=== PATIENT | male | born 1940 | race Caucasian/White ===

== ENCOUNTER → 2017-04-01 | Outpatient (CLI) | payer MEDICARE | END | disposition home or self-care (01) | LOC: PCVCCLINIC 10:12 | PROVIDERS: ATTEND Internal Medicine | DX: I25.10 Atherosclerotic heart disease of native coronary artery without angina pectoris (principal); E78.5 Hyperlipidemia, unspecified; I71.4 Abdominal aortic aneurysm, without rupture; I65.23 Occlusion and stenosis of bilateral carotid arteries; I12.9 Hypertensive chronic kidney disease with stage 1 through stage 4 chronic kidney disease, or unspecified chronic kidney disease; N18.9 Chronic kidney disease, unspecified; Z85.46 Personal history of malignant neoplasm of prostate; Z87.891 Personal history of nicotine dependence; Z79.82 Long term (current) use of aspirin; Z88.8 Allergy status to other drugs, medicaments and biological substances | CPT/HCPCS: 80061; 93005; G0463 ==

== ENCOUNTER → 2017-04-09 | Outpatient (CLI) | payer MEDICARE ==
--- NOTE | 2017-04-09 10:09 | PCVCIMAG ---
APPROVED REPORT Indications Stenosis Risk Factors Hypertension: Doppler Spectral Velocity Analysis PSV / EDVPSV / EDV ECA (R) 171 / 9 cm/sECA (L) 283 / 9 cm/s dICA (R) 108 / 37 cm/sdICA (L) 72 / 22 cm/s Tamela (R) 164 / 29 cm/smICA (L) 224 / 31 cm/s pICA (R) 225 / 41 cm/spICA (L) 242 / 65 cm/s Bulb (R) 140 / 18 cm/sBulb (L) 101 / 18 cm/s dCCA (R) 105 / 21 cm/sdCCA (L) 82 / 18 cm/s mCCA (R) 99 / 11 cm/smCCA (L) 101 / 18 cm/s Vert (R) 62 / 0 cm/sVert (L) 32 / 0 cm/s ICA/CCA 2.14ICA/CCA 2.95 Basic Measurements Blood Pressure: Pulses: Right Left RightLeft Brachial(Sitting) 174/13cmJv412/88mmHgTemporal Findings The right carotid bulb has moderately severe heterogeneous plaque. The right proximal internal carotid artery shows 60-70% stenosis. The right common carotid artery shows <40% stenosis. The right external carotid artery shows >50% stenosis. The left carotid bulb has severe heterogeneous plaque. The left proximal internal carotid artery shows 70-80% stenosis. The left common carotid artery shows no significant stenosis. The left external carotid artery shows >90% stenosis. Conclusion 1. Right internal carotid artery stenosis (60-70%) 2. Left internal carotid artery stenosis (70-80%) 3. Antegrade vertebral flow
--- NOTE | 2017-04-09 17:54 | PCVCIMAG ---
APPROVED REPORT Study performed: 04/09/2017 09:32:48 EXAM: Comprehensive 2D, Doppler, and color-flow Echocardiogram Patient Location: Echo lab Other Information Study Quality: Adequate Indications CAD Hypertension/HDD Hyperlipidemia. AAA 2D Dimensions RVDd: 33.69 mm IVSd: 8.76 (7-11mm)LVOT Diam: 21.44 (18-24mm) LVDd: 49.55 mm PWd: 9.41 (7-11mm)Ascending Ao: 34.89 (22-36mm) LVDs: 30.47 (25-40mm) Left Atrium: 45.59 (27-40mm) LV Single Plane 4CH: 61.97 % LV Single Plane 2CH: 65.54 %Goodson's LVEF: 63.76 % Biplane EF: 64.1 % Volumes Left Atrial Volume (Systole) Single Plane 4CH: 37.48 mLSingle Plane 2CH: 61.09 mL LA ESV Index: 32.00 mL/m2 Aortic Valve AoV Peak Al.: 1.39 m/s AO Peak Gr.: 7.72 mmHgLVOT Max P.04 mmHg LVOT Max V: 1.00 m/s MIO Vmax: 2.61 cm2 Mitral Valve E/A Ratio: 1.0 MV Decel. Time: 254.34 ms MV E Max Al.: 0.93 m/s MV A Al.: 0.94 m/s MV PHT: 73.76 ms TDI E/Medial E': 11.63 E': 0.08Medial E' Al.: 0.08 m/s Pulmonary Valve PV Peak Gr.: 2.93 mmHg Pulmonary Vein P Vein S: 0.71 m/sP Vein A: 0.24 m/s P Vein D: 0.55 m/sP Vein A Dur.: 69.2 msec P Vein S/D Ratio: 1.29 Left Ventricle The left ventricle is normal size. There is normal LV segmental wall motion. There is normal left ventricular wall thickness. Left ventricular systolic function is normal. The left ventricular ejection fraction is within the normal range. LVEF is 60-65%. The left ventricular diastolic function is normal. Right Ventricle The right ventricle is normal size. The right ventricular systolic function is normal. Atria The left atrium size is normal. The right atrium size is normal. Aortic Valve The aortic valve is trileaflet, mildly calcified Mild aortic regurgitation. There is no aortic valvular stenosis. Mitral Valve The mitral valve is normal in structure. Mild mitral regurgitation. No evidence of mitral valve stenosis. Tricuspid Valve The tricuspid valve is normal in structure. There is no tricuspid valve regurgitation noted. Pulmonic Valve The pulmonary valve is normal in structure. Trace pulmonic regurgitation. Great Vessels The aortic root is normal in size. IVC is normal in size and collapses with >50% inspiration Pericardium There is no pericardial effusion. <Conclusion> Left ventricular systolic function is normal. There is normal LV segmental wall motion. LVEF 60-65%. The aortic valve is trileaflet, mildly calcified, non-stenotic. Mild aortic regurgitation. The mitral valve is normal in structure. Mild mitral regurgitation. Pulmonary artery pressure could not be reliably ascertained. There is no pericardial effusion.
== END | disposition home or self-care (01) ==
LOC: PCVCIMAG 08:41
PROVIDERS: ATTEND Internal Medicine
DX: I65.23 Occlusion and stenosis of bilateral carotid arteries (principal); I35.1 Nonrheumatic aortic (valve) insufficiency; I34.0 Nonrheumatic mitral (valve) insufficiency; I37.1 Nonrheumatic pulmonary valve insufficiency; I10 Essential (primary) hypertension; I25.10 Atherosclerotic heart disease of native coronary artery without angina pectoris; I71.4 Abdominal aortic aneurysm, without rupture; E78.5 Hyperlipidemia, unspecified
CPT/HCPCS: 93306; 93880

== ENCOUNTER → 2018-01-08 | Outpatient (CLI) | payer MEDICARE | END | disposition home or self-care (01) | LOC: PCVCCLINIC 11:24 | DX: I25.10 Atherosclerotic heart disease of native coronary artery without angina pectoris (principal); I10 Essential (primary) hypertension; E78.5 Hyperlipidemia, unspecified; I65.23 Occlusion and stenosis of bilateral carotid arteries; I71.4 Abdominal aortic aneurysm, without rupture; H91.93 Unspecified hearing loss, bilateral; Z87.891 Personal history of nicotine dependence; Z79.82 Long term (current) use of aspirin; Z79.899 Other long term (current) drug therapy | CPT/HCPCS: 93005; G0463 ==

== ENCOUNTER → 2019-03-03 | Outpatient (CLI) | payer MEDICARE | END | disposition home or self-care (01) | LOC: PCVCCLINIC 14:00 | PROVIDERS: ATTEND Internal Medicine | DX: I25.10 Atherosclerotic heart disease of native coronary artery without angina pectoris (principal); I12.9 Hypertensive chronic kidney disease with stage 1 through stage 4 chronic kidney disease, or unspecified chronic kidney disease; N18.9 Chronic kidney disease, unspecified; I65.23 Occlusion and stenosis of bilateral carotid arteries; I71.4 Abdominal aortic aneurysm, without rupture; E78.5 Hyperlipidemia, unspecified; Z91.041 Radiographic dye allergy status; Z88.8 Allergy status to other drugs, medicaments and biological substances; Z79.899 Other long term (current) drug therapy; Z79.82 Long term (current) use of aspirin; Z87.891 Personal history of nicotine dependence | CPT/HCPCS: 36415; 80061; 93005; G0463 ==

== ENCOUNTER → 2019-04-26 | Outpatient (CLI) | payer MEDICARE ==
--- NOTE | 2019-04-26 11:39 | PCVCIMAG ---
APPROVED REPORT Indications Stenosis CAD History of Smoking Doppler Spectral Velocity Analysis PSV / EDVPSV / EDV ECA (R) 125 / 11 cm/sECA (L) 274 / 12 cm/s dICA (R) 59 / 14 cm/sdICA (L) 61 / 14 cm/s aTmela (R) 124 / 27 cm/smICA (L) 297 / 57 cm/s pICA (R) 180 / 41 cm/spICA (L) 317 / 96 cm/s Bulb (R) 137 / 30 cm/sBulb (L) 90 / 16 cm/s dCCA (R) 64 / 16 cm/sdCCA (L) 85 / 18 cm/s mCCA (R) 89 / 15 cm/smCCA (L) 69 / 11 cm/s pCCA (R) 62 / 14 cm/spCCA (L) Vert (R) 50 / 0 cm/sVert (L) 49 / 0 cm/s ICA/CCA 2.81ICA/CCA 3.73 Basic Measurements Blood Pressure: Pulses: Right Left RightLeft Brachial(Sitting) 126/35eaYz504/60mmHgTemporal Real Time B-Mode Imaging Vert. (R)AntegradeVert. (L)Antegrade Findings The right carotid bulb has moderate plaque. The right proximal internal carotid artery shows 60-70% stenosis. The right common carotid artery shows no significant stenosis. The right external carotid artery shows no significant stenosis. The left carotid bulb has moderately severe plaque. The left proximal internal carotid artery shows 80-90% stenosis. The left common carotid artery shows <40% stenosis. The left external carotid artery shows >90% stenosis. Conclusion 1. Right internal carotid artery stenosis (60-70%). 2. Left internal carotid artery stenosis (80-90%) 3. Antegrade vertebral flow.
--- NOTE | 2019-04-26 12:21 | PCVCIMAG ---
APPROVED REPORT Study performed: 04/26/2019 11:12:21 EXAM: Comprehensive 2D, Doppler, and color-flow Echocardiogram Patient Location: Echo lab Status: routine BSA: 1.88 HR: 45 bpmBP: 126/64 mmHg Rhythm: NSR Other Information Study Quality: Good Risk Factors: Cardiac Risk Factors: Hyperlipidemia, HTN Indications CAD AAA 2D Dimensions IVSd: 10.29 (7-11mm)LVOT Diam: 19.92 (18-24mm) LVDd: 32.77 mm PWd: 9.58 (7-11mm)Ascending Ao: 35.93 (22-36mm) LVDs: 24.98 (25-40mm) Left Atrium: 44.87 (27-40mm) Aortic Root: 35.94 mm LV Single Plane 4CH: 57.53 % LV Single Plane 2CH: 56.74 % Biplane EF: 57.0 % Volumes Left Atrial Volume (Systole) Single Plane 4CH: 44.00 mLSingle Plane 2CH: 49.07 mL LA ESV Index: 27.00 mL/m2 Aortic Valve AoV Peak Al.: 1.34 m/s AO Peak Gr.: 7.13 mmHgLVOT Max P.01 mmHg LVOT Max V: 0.87 m/s MIO Vmax: 2.02 cm2 AI Vmax: 4.32 m/s AI Conway: 1.46 m/s2 AI PHT: 858.87 ms Mitral Valve E/A Ratio: 0.8 MV Decel. Time: 324.00 ms MV E Max Al.: 0.66 m/s MV A Al.: 0.83 m/s TDI E/Lateral E': 6.60E/Medial E': 9.43 Medial E' Al.: 0.07 m/s Lateral E' Al.: 0.10 m/s Pulmonary Valve PV Peak Gr.: 2.25 mmHg Pulmonary Vein P Vein S: 0.62 m/sP Vein A: 0.34 m/s P Vein D: 0.45 m/sP Vein A Dur.: 58.8 msec P Vein S/D Ratio: 1.38 Tricuspid Valve TR Peak Al.: 2.05 m/s TR Peak Gr.: 16.76 mmHg Left Ventricle The left ventricle is normal size. There is normal LV segmental wall motion. There is normal left ventricular wall thickness. Left ventricular systolic function is normal. The left ventricular ejection fraction is within the normal range. LVEF is 60%. Mild diastolic dysfunction. Right Ventricle The right ventricle is normal size. The right ventricular systolic function is normal. Atria The left atrium size is normal. The right atrium size is normal. Aortic Valve The aortic valve is trileaflet, moderately calcified. Mild aortic regurgitation. Mitral Valve Mild mitral annular calcification There is no mitral valve regurgitation noted. No evidence of mitral valve stenosis. Tricuspid Valve The tricuspid valve is normal in structure. Mild tricuspid regurgitation. Pulmonary artery pressure is 24mmHg. Pulmonic Valve The pulmonary valve is normal in structure. There is no pulmonic valvular regurgitation. Great Vessels The aortic root is normal in size. IVC is normal in size and collapses >50% with inspiration. Pericardium There is no pericardial effusion. <Conclusion> Left ventricular systolic function is normal. There is normal LV segmental wall motion. LVEF is 60%. Mild diastolic dysfunction. The aortic valve is trileaflet, moderately calcified. Mild aortic regurgitation, no stenosis. Mild mitral annular calcification. No mitral valve regurgitation Mild tricuspid regurgitation. Pulmonary artery pressure of 24mmHg. There is no pericardial effusion.
--- NOTE | 2019-04-26 12:25 | PCVCIMAG ---
EXAM: AORTOILIAC DUPLEX INDICATION: Abdominal aortic aneurysm. FINDINGS: AORTA: Suprarenal aorta measures maximum diameter of 3.3 cm. There is a fusiform infrarenal aortic aneurysm. The infrarenal aorta measures maximum diameter of 2.8 x 3.3 cm. No aortic stenosis. RIGHT COMMON ILIAC ARTERY: Maximum diameter is 1.4 cm. No significant stenosis. RIGHT EXTERNAL ILIAC ARTERY: No significant stenosis. LEFT COMMON ILIAC ARTERY: Maximum diameter is 1.6 cm. No significant stenosis. LEFT EXTERNAL ILIAC ARTERY: No significant stenosis. IMPRESSION: 3.3 cm infrarenal abdominal aortic aneurysm. Ectasia distal left common iliac artery measuring 1.6 cm. Follow-up in one year is recommended. LOC:[id number]
== END | disposition home or self-care (01) ==
LOC: PCVCIMAG 09:35
PROVIDERS: ATTEND Internal Medicine
DX: I65.23 Occlusion and stenosis of bilateral carotid arteries (principal); I07.1 Rheumatic tricuspid insufficiency; I71.4 Abdominal aortic aneurysm, without rupture; I25.10 Atherosclerotic heart disease of native coronary artery without angina pectoris; I10 Essential (primary) hypertension; Z79.4 Long term (current) use of insulin
CPT/HCPCS: 93306; 93880; 93978